=== PATIENT | female | born 1945 | race African-American/Black ===

== ENCOUNTER 2024-01-31 09:48 | Outpatient (CLI) | payer OTHER | END 2024-01-31 09:49 | disposition home or self-care (01) | LOC: RAD 09:48 | PROVIDERS: ATTEND Student in an Organized Health Care Education/Training Program | DX: C34.2 Malignant neoplasm of middle lobe, bronchus or lung (principal); J98.4 Other disorders of lung; R91.8 Other nonspecific abnormal finding of lung field | CPT/HCPCS: 71046 ==